=== PATIENT | female | born 1950 | race Caucasian/White ===

== ENCOUNTER 2016-03-21 22:17 | Emergency (ER) | payer OTHER | END 2016-03-22 05:16 | disposition home or self-care (01) | LOC: ER 22:17 ==

== ENCOUNTER 2016-03-22 18:35 | Emergency (ER) | payer OTHER ==
[2016-03-22] MEDS ORDERED: ONDANSETRON ODT 4 MG TAB ONE (20:27)
== END 2016-03-22 23:24 | disposition home or self-care (01) ==
LOC: ER 18:35